=== PATIENT | female | born 1975 | race Caucasian/White ===

== ENCOUNTER 2018-09-15 13:15 | Inpatient (IN) | payer OTHER ==
[~2018-09-15] VITALS: Ht 160 cm; Wt 67.1 kg
[2018-09-23] MEDS ORDERED: OXYC1TAB9 PO (08:43)
[2018-09-23] MEDS ORDERED: Intestinex CAP PO (08:43)
[2018-09-23] MEDS ORDERED: COLACE100 MG PO (08:52)
== END 2018-09-23 10:10 | disposition home or self-care (01) | DRG 334 ==
LOC: O/R 09-22 06:00 → SURH 09-22 08:45
PROVIDERS: ADMIT Surgery
PROC: 3E0T3BZ Introduction of Anesthetic Agent into Peripheral Nerves and Plexi, Percutaneous Approach (ICD-10-PCS; 2018-09-22)
PROC: 0DBP4ZZ Excision of Rectum, Percutaneous Endoscopic Approach (ICD-10-PCS; principal; 2018-09-22 08:45)
DX: D3A.026 Benign carcinoid tumor of the rectum (principal)

== ENCOUNTER 2020-03-12 08:50 | Day surgery (SDC) | payer OTHER ==
[~2020-03-12 08:50] MED LIST: COLACE100 MG PO; Intestinex CAP PO; OXYC1TAB9 PO
== END 2020-03-12 14:30 | disposition home or self-care (01) ==
LOC: AMB-ENDOS 08:50
PROVIDERS: ATTEND Surgery
DX: K62.89 Other specified diseases of anus and rectum (principal); K64.8 Other hemorrhoids; Z20.828 Contact with and (suspected) exposure to other viral communicable diseases